=== PATIENT | female | born 1960 | race Caucasian/White ===

== ENCOUNTER 2023-12-30 15:25 | Observation (INO) | payer OTHER, BC ==
[2023-12-30] MEDS ORDERED: METHYLPREDNISOLONE 125 MG INJ ONE (15:57)
[2023-12-30] MEDS ORDERED: LEVALBUTEROL 1.25 MG/3 ML NEB ONE (15:57)
[2023-12-30 16:25] LABS: Absolute Basophils 0.1 K/uL (0-0.5); Absolute Eosinophils 0.6 K/uL (0-0.5); Absolute Lymphocytes (CBC) 2.3 K/uL (0.7-4.9); Absolute Monocytes 0.5 K/uL (0.1-1.3); Absolute Neutrophil 6.7 K/uL (1.8-8.0); Basophils % 0.8 % (0-1.3); Eosinophils % 6.2 % (0-4.4); Hematocrit 39.6 % (36.0-45.0); Hemoglobin 13.4 g/dL (12.0-15.0); Lymphocytes % 22.7 % (15.3-44.8); MCH 30.7 pg (27.0-35.0); MCHC 33.8 g/dL (32.0-36.0); MCV 90.9 fL (80-100); Monocytes % 5.1 % (3.3-12.3); Neutrophils % 65.2 % (41.7-73.7); Platelets 364 thou/uL (152-406); RBC Red Blood Cell Count 4.36 M/uL (3.86-4.86); Red Cell Distribution Width 12.9 % (12.1-15.2)
[2023-12-30 16:39] LABS: Anion Gap 6.5 mEq/L (5.0-15.0); Potassium 3.5 mEq/L (3.5-5.1); Troponin High Sensitivity 6.4 pg/mL (<58.9)
--- NOTE | 2023-12-30 16:56 | RAD REPORT ---
EXAM DESCRIPTION: Olivia Single View12/30/2023 4:45 pm CLINICAL HISTORY: sob COMPARISON: none FINDINGS: The lungs appear clear of acute infiltrate. The heart is normal size IMPRESSION: No acute abnormalities displayed
--- NOTE | 2023-12-30 18:41 | EDPHYS ---
Physician Documentation [facility] Name: Latesha Penn Age: 63 yrs Sex: Female : 1960 Arrival Date: 12/30/2023 Time: 15:25 Bed 4 Private MD: ED Physician Cortez Cui HPI: 12/29 15:52 This 63 yrs old Female presents to ER via Ambulatory with complaints of Chest Pain, rn Asthma Exacerbation. 15:53 The patient has shortness of breath at rest, with light activity. rn 15:53 Onset: The symptoms/episode began/occurred 2 day(s) ago. Duration: The symptoms are rn intermittent. The patient's shortness of breath is aggravated by coughing, supine position, talking, walking. Severity of symptoms: At their worst the symptoms were moderate in the emergency department the symptoms are unchanged. The patient has experienced similar episodes in the past. Patient reports shortness of breath with wheezing and cough for 2 days. Has asthma. Used to smoke. Inhaler helps temporarily but symptoms return. Had 30 seconds of substernal chest pressure 2 days ago but has not had some since. No trauma. No hemoptysis. No history of DVT or PE. No DVT risk factors. Had coronary testing 8 years ago that showed a 50 to 70% LAD lesion but has not had trouble since then. No stent placed at that time.. Historical: - Allergies: 15:42 NSAIDS; ll1 - PMHx: 15:42 Asthma; Hypertensive disorder; ll1 - PSHx: 15:42 back surgery; ll1 - Immunization history:: Adult Immunizations up to date. - Social history:: Smoking status: Patient/guardian denies using tobacco, the patient reports quitting approximately 4 years ago, Patient uses smokes CBD. - Family history:: not pertinent. - Hospitalizations: : No recent hospitalization is reported. ROS: 15:53 Constitutional: Negative for fever, chills, and weight loss, ENT: No stridor rn case mgr: Negative for palpitations, and edema, Respiratory: Positive for cough and wheezing with shortness of breath Abdomen/GI: Negative for abdominal pain, nausea, vomiting, diarrhea, and constipation, MS/Extremity: Negative for injury and deformity, Neuro: Negative for headache, weakness, numbness, tingling, and seizure, Exam: 15:53 Constitutional: This is a well developed, well nourished patient who is awake, alert, rn and in no acute distress. ENT: No stridor Cardiovascular: Regular rate and rhythm. No pulse deficits. Respiratory: Mild tachypnea with diffuse expiratory wheezing noted, no retractions. MS/ Extremity: Pulses equal, no cyanosis. Neuro: Awake and alert, GCS 15 19:57 ECG was reviewed by the Attending Physician. rn Vital Signs: 15:43 BP 141 / 62; Pulse 77; Resp 18; Temp 98.3; Pulse Ox 98% on R/A; Weight 81.65 kg; Height ll1 5 ft. 3 in. ; Pain 0/10; 18:30 BP 131 / 68; Pulse 64; Resp 20 S; Pulse Ox 95% on R/A; aa5 19:38 BP 144 / 70; Pulse 84; Resp 16; Pulse Ox 99% on R/A; kd3 15:43 Body Mass Index 31.89 (81.65 kg, 160.02 cm) ll1 15:43 Pain Scale: Adult ll1 MDM: 15:29 Patient medically screened. rn 18:38 Differential diagnosis: Anemia Anxiety Reaction pneumonia, Pneumothorax pulmonary rn edema, Pulmonary Embolism Unstable Angina. Data reviewed: vital signs, nurses notes, lab test result(s), EKG, radiologic studies, plain films, and as a result, I will admit patient. Consideration of Admission/Observation Patient was admitted/placed on observation. Escalation of care including admission/observation considered. Counseling: I had a detailed discussion with the patient and/or guardian regarding the historical points, exam findings, and any diagnostic results supporting the discharge/admit diagnosis, lab results, radiology results, the need for further work-up and treatment in the hospital. ED course: Patient with chest pain and dyspnea, has results from 8 years ago that showed proximal LAD lesion approximately 50 to 70%. Has not followed up since then. Given recent chest pain and dyspnea without other acute finding will admit for cardiac workup.. 12/29 15:51 Order name: Basic Metabolic Panel; Complete Time: 16:54 rn 12/29 15:51 Order name: CBC with Diff; Complete Time: 16:54 rn 12/29 15:51 Order name: D-Dimer; Complete Time: 18:02 rn 12/29 15:51 Order name: NT PRO-BNP; Complete Time: 16:54 rn 12/29 15:51 Order name: Troponin HS; Complete Time: 16:54 12/29 19:40 Order name: Magnesium EDNM 12/29 19:40 Order name: Urinalysis W/Microscopic [facility] 12/29 19:40 Order name: Thyroid Stimulating Hormone [facility] 12/29 19:40 Order name: CBC with Automated Diff EDNM 12/29 19:40 Order name: CBC with Automated Diff [facility] 12/29 19:40 Order name: Comprehensive Metabolic Panel [facility] 12/29 19:40 Order name: Comprehensive Metabolic Panel [facility] 12/29 19:40 Order name: Lipid Profile [facility] 12/29 19:40 Order name: Lipid Profile [facility] 12/29 19:40 Order name: Troponin High Sensitivity [facility] 12/29 19:40 Order name: Troponin High Sensitivity [facility] 12/29 15:51 Order name: XRAY Chest (1 view) 12/29 15:51 Order name: EKG; Complete Time: 15:51 12/29 19:40 Order name: CONS Physician Consult [facility] 12/29 15:51 Order name: Cardiac monitoring; Complete Time: 16:19 12/29 15:51 Order name: EKG - Nurse/Tech; Complete Time: 17:15 12/29 15:51 Order name: IV Saline Lock; Complete Time: 16:19 12/29 15:51 Order name: Labs collected and sent; Complete Time: 16:19 12/29 15:51 Order name: O2 Per Protocol; Complete Time: 16:19 12/29 15:51 Order name: O2 Sat Monitoring; Complete Time: 16:19 12/29 16:33 Order name: Labs - recollect needed: blue; Complete Time: 17:15 bc6 EC:57 Rate is 61 beats/min. Rhythm is regular. QRS [place] is Normal. [place] interval is normal. QRS rn interval is normal. QT interval is normal. No Q waves. T waves are Normal. No ST changes noted. Clinical impression: Normal ECG. Interpreted by me. Reviewed by me. Administered Medications: 16:19 Drug: MethylPrednisoLONE IVP 125 mg IVP once Route: IVP; Site: right antecubital; aa5 16:49 Follow up: Response: No adverse reaction aa5 19:39 Follow up: Response: No adverse reaction kd3 16:19 Drug: Levalbuterol Inhalation 1.25 mg Inhalation once Route: Inhalation; aa5 16:49 Follow up: Response: No adverse reaction aa5 19:38 Follow up: Response: No adverse reaction kd3 19:00 Drug: Aspirin PO 81 mg PO once Route: PO; aa5 19:38 Follow up: Response: No adverse reaction kd3 Disposition Summary: 12/30/23 18:40 Hospitalization Ordered Notes: Hospitalization Status: Observation rn Provider: Lili Santiago [facility]n [facility] rn Condition: Stable rn Problem: new rn Symptoms: have improved rn Bed/Room Type: Standard rn Room Assignment: 204(12/30/23 19:44) rv1 Diagnosis - Chest pain, unspecified rn - Dyspnea, unspecified rn Forms: - Medication Reconciliation Form rn - SBAR form rn - Leadership Thank You Letter rn Signatures: Dispatcher [employer] EDMS Cortez Cui MD MD rn Calderon, Audri RN RN aa5 Alicia Mead, RN RN ll1 Zakiya Somers rv1 Luana Neil Kyli RN kd3 Corrections: (The following items were deleted from the chart) 19:44 18:40 rn rv1
--- NOTE | 2023-12-30 18:41 | ER ---
Nurse's Notes [facility] Name: aLtesha Penn Age: 63 yrs Sex: Female : 1960 Arrival Date: 12/30/2023 Time: 15:25 Bed 4 Private MD: Diagnosis: Chest pain, unspecified;Dyspnea, unspecified Presentation: 12/29 15:43 Chief complaint: Patient states: SOB, wheezing, cough since Wednesday. No fever. Had 1 ll1 episode of chest pressure Wednesday, none since. Coronavirus screen: Client denies travel out of the [place] in the last 14 days. congestion, cough unrelated to allergies, difficulty breathing, shortness of breath, Client presents with at least one sign or symptom that may indicate coronavirus-19. Standard/surgical mask placed on the client. Ebola Screen: Patient denies travel to an Ebola-affected area in the 21 days before illness onset. Initial Sepsis Screen: Does the patient meet any 2 criteria? No. Patient's initial sepsis screen is negative. Does the patient have a suspected source of infection? No. Patient's initial sepsis screen is negative. Risk Assessment: Do you want to hurt yourself or someone else? Patient reports no desire to harm self or others. Onset of symptoms was December 28, 2023. 15:43 Method Of Arrival: Ambulatory ll1 15:43 Acuity: AGUSTINA 3 ll1 Triage Assessment: 15:44 General: Appears uncomfortable, Behavior is calm, cooperative, appropriate for age. ll1 Pain: Denies pain. Cardiovascular: Reports chest pain, shortness of breath. Respiratory: Reports shortness of breath cough that is. Historical: - Allergies: 15:42 NSAIDS; ll1 - PMHx: 15:42 Asthma; Hypertensive disorder; ll1 - PSHx: 15:42 back surgery; ll1 - Immunization history:: Adult Immunizations up to date. - Social history:: Smoking status: Patient/guardian denies using tobacco, the patient reports quitting approximately 4 years ago, Patient uses smokes CBD. - Family history:: not pertinent. - Hospitalizations: : No recent hospitalization is reported. Screenin:40 [facility] ED Fall Risk Assessment (Adult) History of falling in the last 3 months, aa5 including since admission No falls in past 3 months (0 pts) Confusion or Disorientation No (0 pts) Intoxicated or Sedated No (0 pts) Impaired Gait No (0 pts) Mobility Assist Device Used No (0 pt) Altered Elimination No (0 pt) Score/Fall Risk Level 0 - 2 = Low Risk Oriented to surroundings, Maintained a safe environment, Educated pt \T\ family on fall prevention, incl call for assistance when getting out of bed. Abuse screen: Denies threats or abuse. Nutritional screening: No deficits noted. Tuberculosis screening: No symptoms or risk factors identified. Assessment: 15:40 General: Appears comfortable, Behavior is calm, cooperative. Pain: Denies pain. Neuro: aa5 Level of Consciousness is awake, alert, obeys commands, Oriented to person, place, time, situation. Cardiovascular: Heart tones S1 S2 present Rhythm is regular. Respiratory: Reports shortness of breath at rest cough Airway is patent Respiratory effort is even, unlabored, Respiratory pattern is regular, symmetrical, Breath sounds with wheezes bilaterally. GI: No signs and/or symptoms were reported involving the gastrointestinal system. : No signs and/or symptoms were reported regarding the genitourinary system. EENT: No signs and/or symptoms were reported regarding the EENT system. Derm: Skin is pink, warm \T\ dry. Musculoskeletal: Range of motion: intact in all extremities. 16:19 Reassessment: Patient is alert, oriented x 3, equal unlabored respirations, skin aa5 warm/dry/pink. 16:49 Reassessment: Patient is alert, oriented x 3, equal unlabored respirations, skin aa5 warm/dry/pink. Pt sitting up in bed. . 18:30 Reassessment: Patient is alert, oriented x 3, equal unlabored respirations, skin aa5 warm/dry/pink. 19:37 General: Appears in no apparent distress. comfortable, Behavior is calm, cooperative. kd3 General: Patient disconnected from the monitor and is independently ambulatory to the restroom without SOB. . Pain: Denies pain. Neuro: Level of Consciousness is awake, alert, obeys commands, Oriented to person, place, time, situation. Cardiovascular: Rhythm is sinus rhythm. Respiratory: Airway is patent Trachea midline Respiratory effort is even, unlabored, Respiratory pattern is regular, symmetrical. 19:43 General: Pt placed back on continuous monitoring. . kd3 19:54 General: Report sent to the floor . kd3 Vital Signs: 15:43 BP 141 / 62; Pulse 77; Resp 18; Temp 98.3; Pulse Ox 98% on R/A; Weight 81.65 kg; Height ll1 5 ft. 3 in. ; Pain 0/10; 18:30 BP 131 / 68; Pulse 64; Resp 20 S; Pulse Ox 95% on R/A; aa5 19:38 BP 144 / 70; Pulse 84; Resp 16; Pulse Ox 99% on R/A; kd3 15:43 Body Mass Index 31.89 (81.65 kg, 160.02 cm) ll1 15:43 Pain Scale: Adult ll1 ED Course: 15:27 Patient arrived in ED. mr 15:29 Cortez Cui MD is Attending Physician. rn 15:36 Arm band placed on Patient placed in an exam room, on a stretcher. tm6 15:40 Patient has correct armband on for positive identification. Placed in gown. Bed in low aa5 position. Call light in reach. Side rails up X2. Adult w/ patient. Client placed on continuous cardiac and pulse oximetry monitoring. NIBP monitoring applied. quality assurance monitor chassis on. Pulse ox on. NIBP on. 15:44 Triage completed. ll1 15:46 Melony Gauthier, KOURTNEY is Primary Nurse. aa5 16:10 Initial lab(s) drawn, by me, sent to lab. Inserted saline lock: 20 gauge in right aa5 antecubital area, using aseptic technique. Blood collected. Flushed with 10 mL NS. 16:47 XRAY Chest (1 view) In Process Unspecified. EDMS 18:40 Lili Santiago MD is Hospitalizing Provider. rn 19:00 Report given to KOURTNEY Vera and KOURTNEY Avitia. aa5 Administered Medications: 16:19 Drug: MethylPrednisoLONE IVP 125 mg IVP once Route: IVP; Site: right antecubital; aa5 16:49 Follow up: Response: No adverse reaction aa5 19:39 Follow up: Response: No adverse reaction kd3 16:19 Drug: Levalbuterol Inhalation 1.25 mg Inhalation once Route: Inhalation; aa5 16:49 Follow up: Response: No adverse reaction aa5 19:38 Follow up: Response: No adverse reaction kd3 19:00 Drug: Aspirin PO 81 mg PO once Route: PO; aa5 19:38 Follow up: Response: No adverse reaction kd3 Medication: 19:18 VIS not applicable for this client. aa5 Outcome: 18:40 Decision to Hospitalize by Provider. rn 20:45 Patient left the ED. jb4 Signatures: Dispatcher [employer] EDMT Latesha Campbell, Galo Cui MD GELY Toro rn Melony Gauthier, RN RN aa5 Chip Rey RN RN jb4 Alicia Mead RN RN 1 Jody Bland RN RN kd3 Maura Joshua, RN RN Remberto Gutierrez RN RN tm6 Corrections: (The following items were deleted from the chart) 15:47 15:47 Primary Nurse role handed off by Melony Gauthier RN [facility] 15:47 15:47 Maura Joshua, KOURTNEY is Primary Nurse. [facility] 15:47 15:47 Primary Nurse role handed off by Maura Joshua, KOURTNEY [place] [id number] 15:47 15:47 Melony Gauthier, KOURTNEY is Primary Nurse. [place] [phone]
[2023-12-30] MEDS ORDERED: ASPIRIN 81 MG CHEWABLE TABLET ONE (18:55)
[2023-12-30] MEDS ORDERED: guaiFENesin 100 MG/5 ML UCUP PO PRN (19:23)
[2023-12-30] MEDS ORDERED: ONDANSETRON 4 MG/2 ML VIAL IV PRN (19:35)
[2023-12-30] MEDS ORDERED: ACETAMINOPHEN 500 MG TAB PO PRN (19:35)
[2023-12-30] MEDS ORDERED: MORPHINE 2 MG/ML SYR IV PRN (19:35)
--- NOTE | 2023-12-30 19:44 | P.HP ---
Certification for Inpatient Patient admitted to: Observation With expected LOS: <2 Midnights Patient will require the following post-hospital care: None Practitioner: I am a practitioner with admitting privileges, knowledge of patient current condition, hospital course, and medical plan of care. Services: Services provided to patient in accordance with Admission requirements found in Title 42 Section 412.3 of the Code of Federal Regulations Patient History Date of Service: 12/30/23 Reason for admission: Shortness of breath History of Present Illness: 63-year-old female with past medical history of hypertension, asthma on daily Singulair who presented to the hospital today after being asked to come to the hospital by her PCPs office for shortness of breath and wheezing since the last 1 week. Patient states she uses her MDI inhaler infrequently on average once every 6 months but since the last 1 week has been having intermittent with requiring up to 2-3 times daily use of the inhaler. Symptoms continue to persist. She had an episode of transient chest pain substernal occurred while she was ambulating, symptoms lasted for about 5 minutes she described it as heaviness then symptoms resolved. She has not had recurrent chest pain since the last 2 days. She had gone to her PCPs office because of the persistent wheezing and shortness of breath. She denies any cough she denies any fever. She states and also brought along copies of a cardiac cath in 2016 in [place] showing 50 to 70% LAD lesion around the origin of the artery. She had a subsequent stress echo done with negative/normal. She states she had the cardiac cath done because of shortness of breath. She has not had any follow-up or was not placed on any medication since then. On arrival in the emergency room vital signs were stable, troponin was negative, EKG was absolutely normal with no ST segment changes. BMP as well as CBC were unremarkable. Patient is being admitted for atypical chest pain as well as asthma exacerbation. Home medications list reviewed: Yes (LisinoprilHCTZunknown dose) - Past Medical/Surgical History -: Hypertension -: History of CAD -: Asthma Past Surgical History: Patient denies surgical history - Family History Family History: Reviewed- Non-Contributory - Social History Smoking Status: Former smoker Smoking therapy provided: No Alcohol use: No CD- Drugs: No Caffeine use: No Place of Residence: Home Review of Systems Respiratory: Shortness of Breath, Wheezing Cardiovascular: Chest Pain (Single episode) Neurological: Numbness (Intermittent of left hand and finger) Physical Examination - Physical Exam General: Alert, In no apparent distress, Oriented x3, Cooperative HEENT: Atraumatic, Normocephalic, PERRLA, Mucous membr. moist/pink Neck: Supple, 2+ carotid pulse no bruit, JVD not distended Respiratory: Normal air movement, Expiratory wheezes (Very mild) Cardiovascular: Normal pulses, Regular rate/rhythm, Normal S1 S2 Capillary refill: <2 Seconds Gastrointestinal: Normal bowel sounds, Soft and benign, Non-distended, No ascites, No tenderness Musculoskeletal: No clubbing, No swelling Integumentary: No rashes, No breakdown, No significant lesion Neurological: Normal speech, Normal strength at 5/5 x4 extr, Sensation intact, Cranial nerves 3-12 intact - Studies Laboratory Data (last 24 hrs) 12/30/23 12/30/23 16:10 16:10 WBC 10.30 Hgb 13.4 Hct 39.6 Plt Count 364 Sodium 139 Potassium 3.5 BUN 21 H Creatinine 1.00 Glucose 165 H Assessment and Plan - Problems (Diagnosis) (1) Chest pain Current Visit: Yes Status: Acute (2) Asthma exacerbation Current Visit: Yes Status: Acute - Plan Impression Acute asthma exacerbation History of CAD Chest painsingle episoderesolved Plan Will admit patient to observation DuoNebs every 4-6 hours Low-dose IV Solu-Medrol Start gentle IV fluid Follow magnesium level for intermittent left finger numbness Serial set of cardiac enzyme although chest pain was over 48 hours ago and normal EKG Cardiology consult for possibly outpatient follow-up Start low-dose aspirin Resume home meds Full code Lovenox for DVT prophylaxis Discharge Plan: Home - Advance Directives Does patient have a Living Will: No Does patient have a Durable POA for Healthcare: No Physician Review: Patient Assessed, Agree with Above Assessment and Plan Time Spent Managing Pts Care (In Minutes): 65
[2023-12-30] MEDS: ALBUTEROL 2.5 MG/3 ML NEB SOL NEB SCH (19:45)
[2023-12-30] MEDS: IPRATROPIUM BROM 0.5MG/2.5ML NEB SCH (19:45)
[2023-12-30] MEDS: MONTELUKAST 10 MG TAB PO SCH (21:00)
[2023-12-30] MEDS: METHYLPREDNISOLONE 125 MG INJ IV SCH (21:35)
[2023-12-30] MEDS: Ringers Lactate 1,000 ML IV SCH (21:35)
[2023-12-30 21:53] VITALS: BMI 31.1
[2023-12-30] MEDS: Magnesium Sulfate 2gm IVPB 2 G/50 ML BAG IV ONE (22:56)
[2023-12-31 00:07] LABS: Specific Gravity 1.026 (1.005-1.030); Sqamous Epithelial <5 /HPF (None Seen); Urine Bacteria None Seen /HPF (<20); Urine Bilirubin NEGATIVE (Negative); Urine Blood 1+ (Negative); Urine Clarity Clear (Clear); Urine Color Light-Yellow (Yellow); Urine Culture Reflex Order NOT NEEDED; Urine Glucose 4+ (Over) (Negative); Urine Ketones 1+ (Negative); Urine Micro Reflex YN NO BILL MICROSCOPIC; Urine Mucus Slight /HPF (None Seen); Urine Nitrite NEGATIVE (Negative); Urine Protein NEGATIVE (Negative); Urine RBC <5 /HPF (None Seen); Urine Urobilinogen Normal (Normal); Urine WBC <5 /HPF (<5); Urine pH 5.5 (5.0-7.0)
[2023-12-31 05:00] LABS: Absolute Lymphocytes (CBC) 0.9 K/uL (0.7-4.9); Absolute Monocytes 0.1 K/uL (0.1-1.3); Absolute Neutrophil 14.7 K/uL (1.8-8.0); Basophils % 0.2 % (0-1.3); Hematocrit 38.6 % (36.0-45.0); Hemoglobin 12.7 g/dL (12.0-15.0); Lymphocytes % 5.8 % (15.3-44.8); MCH 30.4 pg (27.0-35.0); MCV 92.1 fL (80-100); MPV 7.1 fL (7.6-11.3); Monocytes % 0.7 % (3.3-12.3); Neutrophils % 93.3 % (41.7-73.7); Platelets 339 thou/uL (152-406); Red Cell Distribution Width 12.8 % (12.1-15.2)
[2023-12-31 05:18] LABS: Albumin 3.4 g/dL (3.4-5.0); Albumin/Globulin Ratio 0.9 (1.1-1.8); Anion Gap 11.4 mEq/L (5.0-15.0); Bilirubin Total 0.2 mg/dL (0.2-1.0); Globulin 3.6 g/dL (2.3-3.5); Potassium 3.4 mEq/L (3.5-5.1); Troponin High Sensitivity 8.6 pg/mL (<58.9)
[2023-12-31] MEDS: ENOXAPARIN 40 MG/0.4 ML SQ SCH (08:16)
[2023-12-31] MEDS: ZINC SULFATE 220 MG CAP PO SCH (08:16)
[2023-12-31] MEDS: hydroCHLOROthiazide 25 MG TAB PO SCH (08:17)
[2023-12-31] MEDS: lisinopriL 20 MG TAB PO SCH (08:17)
[2023-12-31] MEDS: ASPIRIN EC 81 MG TAB PO SCH (08:17)
[2023-12-31 08:25] LABS: Blood Morphology Comment NOT SEEN (NOT SEEN); Platelet Estimate ADEQ; White Blood Cell Scan OK (OK)
[2023-12-31] MEDS ORDERED: DULERA 200/5 (MOMETASONE/FORMOTEROL) INHALER IH SCH (10:00)
--- NOTE | 2023-12-31 10:00 | P.CNS ---
Date of Consult: 12/31/23 Reason for Consult: Asthma exacerbation Chief Complaint: Shortness of breath History of Present Illness: Patient is 63 years of age previously well-controlled asthma has been experiencing progressive dyspnea cough congestion for the past 2 weeks she has been having problems since her index operation prior to that patient was using albuterol inhaler maybe once a month in the past 2 weeks she has been having more difficulty at night more cough congestion complaining of orthopnea denies any fever or chills Allergies NSAIDS (Non-Steroidal Anti-Inflamma Allergy (Unknown, Verified 12/30/23 19:42) UNKNOWN Home Medications: Fish Oil/Dha/Epa [Fish Oil 1,200 mg Fish Oil] 1,200 mg PO DAILY 12/30/23 Lisinopril/Hydrochlorothiazide [Lisinopril-Hctz 20-25 mg Tab] 1 each PO DAILY 12/30/23 Montelukast [Singulair] 10 mg PO DAILY 12/30/23 - Past Medical/Surgical History -: Hypertension -: History of CAD -: Asthma - Social History Alcohol use: Yes CD- Drugs: No Caffeine use: Yes Place of Residence: Home Review of Systems 10-point ROS is otherwise unremarkable Physical Examination Temp Pulse Resp BP Pulse Ox 97.6 F 83 16 146/64 H 91 12/31/23 08:00 12/31/23 08:17 12/31/23 08:00 12/31/23 08:17 12/31/23 08:00 General: Alert, Oriented x3 Respiratory: Expiratory wheezes Cardiovascular: No edema, Regular rate/rhythm, Normal S1 S2 Gastrointestinal: Normal bowel sounds, Soft and benign Laboratory Data (last 24 hrs) 12/30/23 12/30/23 16:10 16:10 WBC 10.30 Hgb 13.4 Hct 39.6 Plt Count 364 Sodium 139 Potassium 3.5 BUN 21 H Creatinine 1.00 Glucose 165 H - Problems (1) Asthma exacerbation Current Visit: Yes Status: Acute Plan: Patient is 63 years of age admitted with asthma exacerbation chest x-ray is clear troponins are negative labs are all unremarkable did have some chest discomfort and has a history of mild coronary artery disease EKG was unremarkable troponin is negative doubt cardiac benefit from an outpatient stress test Stable discharge home on some prednisone 10 mg twice a day for a week also a long-acting bronchodilator with a steroid inhaler butyryl as needed follow-up with me in a couple of weeks
--- NOTE | 2023-12-31 14:09 | P.CNS ---
Date of Consult: 12/31/23 Chief Complaint: Shortness of breath History of Present Illness: Patient with PMH of asthma, HTN, Mild to moderate CAD presented with worsening SHANNON, chest pain few days ago in mid chest lasted for few minutes, radiated to her left arm. also report SOB but not sure if it is related to her Asthma, no palpitations, no syncope. Allergies NSAIDS (Non-Steroidal Anti-Inflamma Allergy (Unknown, Verified 12/30/23 19:42) UNKNOWN Home medications list reviewed: Yes Home Medications: Fish Oil/Dha/Epa [Fish Oil 1,200 mg Fish Oil] 1,200 mg PO DAILY 12/30/23 Lisinopril/Hydrochlorothiazide [Lisinopril-Hctz 20-25 mg Tab] 1 each PO DAILY 12/30/23 Montelukast [Singulair] 10 mg PO DAILY 12/30/23 - Past Medical/Surgical History -: Hypertension -: History of CAD -: Asthma - Social History Alcohol use: Yes CD- Drugs: No Caffeine use: Yes Place of Residence: Home Review of Systems 10-point ROS is otherwise unremarkable Physical Examination Temp Pulse Resp BP Pulse Ox 97.1 F 79 16 136/61 93 12/31/23 12:00 12/31/23 12:00 12/31/23 12:00 12/31/23 12:00 12/31/23 12:00 General: Alert, In no apparent distress HEENT: Atraumatic, PERRLA, Mucous membr. moist/pink, EOMI, Sclerae nonicteric Neck: Supple, 2+ carotid pulse no bruit, No LAD, Without JVD or thyroid abnormality Respiratory: Clear to auscultation bilaterally, Normal air movement Cardiovascular: Regular rate/rhythm, Normal S1 S2 Gastrointestinal: Normal bowel sounds, No tenderness Musculoskeletal: No tenderness Integumentary: No rashes Neurological: Normal gait, Normal speech, Normal tone, Normal affect Lymphatics: No axilla or inguinal lymphadenopathy Laboratory Data (last 24 hrs) 12/30/23 12/30/23 16:10 16:10 WBC 10.30 Hgb 13.4 Hct 39.6 Plt Count 364 Sodium 139 Potassium 3.5 BUN 21 H Creatinine 1.00 Glucose 165 H - Problems (1) CAD (coronary artery disease) Current Visit: Yes Status: Acute Plan: Patient had coronary CT angiogram few years ago that shows mild to moderate mid LAD disease, presenting with UA plan for Coronary angiogram ASA 81 mg daily for life. Lipitor 40 mg daily (2) HTN (hypertension) Current Visit: Yes Status: Acute Plan: continue lisinopril and HCTZ (3) HLD (hyperlipidemia) Current Visit: Yes Status: Acute Plan: Lipitor 40 mg daily
[2023-12-31] MEDS ORDERED: LIDOCAINE 1% 20 ML MDV ONE (14:10)
[2023-12-31] MEDS ORDERED: HEPARIN 10,000 UNIT/10 ML VIAL IV ONE (14:10)
[2023-12-31] MEDS ORDERED: HEPA 1000U/500MLS 2,000 UNIT/1,000 ML BAG IV ONE (14:10)
[2023-12-31] MEDS ORDERED: FENTANYL CITR 100 MCG/2 ML ONE (14:11)
[2023-12-31] MEDS ORDERED: ATROPINE SULF 1 MG/10 ML SYR IV ONE (14:11)
[2023-12-31] MEDS ORDERED: CLOPIDOGREL 75 MG TABLET ONE (14:12)
[2023-12-31] MEDS ORDERED: TICAGRELOR 90 MG TABLET PO ONE (14:13)
[2023-12-31] MEDS ORDERED: MIDAZOLAM HCL 2 MG/2 ML INJ ONE (14:13)
[2023-12-31] MEDS ORDERED: HEPARIN 5000 UNIT/ML 1 ML VIAL ONE (14:14)
--- NOTE | 2023-12-31 14:38 | EKG ---
Test Date: 2023-12-30 Test Time: 17:02:08 [place]: ERIN MEASUREMENT RESULTS: Intervals: Rate: 61 MS: 172 QRSD: 92 QT: 446 QTc: 448 [place]: P: 36 MS: 172 QRS: 67 T: 74 INTERPRETIVE STATEMENTS: Normal sinus rhythm Normal ECG No previous ECG available for comparison Electronically Signed On 12-31-23 14:38:00 CDT by Cedric Ramírez
--- NOTE | 2023-12-31 14:54 | P.PN ---
Date of Service: 12/31/23 Subjective: Breathing better today No acute events overnight ROS: 10 point ROS as noted above, otherwise negative Physical exam GEN: Alert, oriented, NAD HEENT: Normal conjunctiva, sclera anicteric CV: Regular rate and rhythm, no edema Pulm: Nonlabored respirations on room air ABD: Soft, nontender, nondistended MSK: No joint tenderness Integumentary: No rashes Neuro: Normal speech, normal affect Vitals reviewed Assessment: Chest pain rule out ACS-history of CAD Asthma with exacerbation Hypertension Hyperlipidemia Plan: Chest pain rule out ACS-history of CAD Reports she had an abnormal cardiac CT a few years ago with moderate CAD Was having chest pain yesterday Cardiology recommends coronary angiogram, going for heart cath this afternoon Await results from coronary angiogram Asthma with exacerbation Seen by pulmonology, improved Recommends switching from Singulair to Advair inhaler at discharge Also recommends prednisone 10 mg by mouth twice daily for 7 days Hypertension Continue home indications Hyperlipidemia Continue statin Will need Rx at discharge if not already taking statin DVT PPX: Lovenox 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
--- NOTE | 2023-12-31 19:30 | P.DS ---
Admission Date: 12/30/23 Discharge Date: 12/31/23 Disposition: ROUTINE DISCHARGE Discharge Condition: FAIR Reason for Admission: Shortness of breath Consultations: cardiology -Dr Ramírez - Problems (1) Chest pain Current Visit: Yes Status: Acute (2) Asthma exacerbation Current Visit: Yes Status: Acute Brief History of Present Illness: 63-year-old female with past medical history of hypertension, asthma on daily Singulair who presented to the hospital today after being asked to come to the hospital by her PCPs office for shortness of breath and wheezing since the last 1 week. Patient states she uses her MDI inhaler infrequently on average once every 6 months but since the last 1 week has been having intermittent with requiring up to 2-3 times daily use of the inhaler. Symptoms continue to persist. She had an episode of transient chest pain substernal occurred while she was ambulating, symptoms lasted for about 5 minutes she described it as heaviness then symptoms resolved. She has not had recurrent chest pain since the last 2 days. She had gone to her PCPs office because of the persistent wheezing and shortness of breath. She denies any cough she denies any fever. She states and also brought along copies of a cardiac cath in 2016 in [place] showing 50 to 70% LAD lesion around the origin of the artery. She had a subsequent stress echo done with negative/normal. She states she had the cardiac cath done because of shortness of breath. She has not had any follow-up or was not placed on any medication since then. On arrival in the emergency room vital signs were stable, troponin was negative, EKG was absolutely normal with no ST segment changes. BMP as well as CBC were unremarkable. Patient is being admitted for atypical chest pain as well as asthma exacerbation. Hospital Course: patient was admitted for atypical chest pain and Asthma exacerbation . She received duonebs and steroids . She was evaluated by pulmonary and dulera and po steroids started , she was seen by Cardiology and underwent a repeat cardiac cath with findings of 4 vessel disease . outpatient evaution with CT surgery has been arranged by cardiology and will be contacted by the office . She is chest pain free now and can be discharged home today Vital Signs/Physical Exam: Temp Pulse Resp BP Pulse Ox 97 F 77 16 159/75 H 97 12/31/23 17:19 12/31/23 17:19 12/31/23 17:19 12/31/23 17:19 12/31/23 17:19 General: Alert, In no apparent distress, Oriented x3 Neck: Supple, 2+ carotid pulse no bruit Respiratory: Clear to auscultation bilaterally, Normal air movement Cardiovascular: No edema, Normal pulses, Regular rate/rhythm, Normal S1 S2 Laboratory Data at Discharge: WBC 15.80 thou/uL (4.3-10.9) H 12/31/23 04:31 Hgb 12.7 g/dL (12.0-15.0) 12/31/23 04:31 Hct 38.6 % (36.0-45.0) 12/31/23 04:31 Plt Count 339 thou/uL (152-406) 12/31/23 04:31 Sodium 139 mEq/L (136-145) 12/31/23 04:31 Potassium 3.4 mEq/L (3.5-5.1) L 12/31/23 04:31 BUN 21 mg/dL (7-18) H 12/31/23 04:31 Creatinine 1.08 mg/dL (0.55-1.02) H 12/31/23 04:31 Glucose 195 mg/dL (74-106) H 12/31/23 04:31 Magnesium 1.8 mg/dL (1.6-2.4) 12/30/23 22:00 Total Bilirubin 0.2 mg/dL (0.2-1.0) 12/31/23 04:31 AST 26 U/L (15-37) 12/31/23 04:31 ALT 30 U/L (13-56) 12/31/23 04:31 Alkaline Phosphatase 90 U/L (45-117) 12/31/23 04:31 Triglycerides 96 mg/dL (<150) 12/31/23 04:31 Cholesterol 206 mg/dL (<200) H 12/31/23 04:31 HDL Cholesterol 48 mg/dL (40-60) 12/31/23 04:31 Cholesterol/HDL Ratio 4.29 12/31/23 04:31 Home Medications: Fish Oil/Dha/Epa [Fish Oil 1,200 mg Fish Oil] 1,200 mg PO DAILY 12/30/23 Lisinopril/Hydrochlorothiazide [Lisinopril-Hctz 20-25 mg Tab] 1 each PO DAILY 12/30/23 Montelukast [Singulair] 10 mg PO DAILY 12/30/23 Mometasone/Formoterol [Dulera 200 Mcg/5 Mcg Inhaler] 2 puff IH BID #1 inhaler 12/31/23 predniSONE [Deltasone*] 10 mg PO BID #6 tab 12/31/23 New Medications: predniSONE [Deltasone*] 10 mg PO BID #6 tab Mometasone/Formoterol [Dulera 200 Mcg/5 Mcg Inhaler] 2 puff IH BID #1 inhaler Diet: Low sodium Activity: Ad arlene Followup: Jeanine Vila MD [Primary Care Provider] - Time spent managing pt's care (in minutes): 35
[2023-12-31 19:44] VITALS: BP 186/70; TEMP 98.1; O2SAT 98
[2023-12-31] MEDS: HYDRALAZINE HCL 20 MG/ML VIAL IV PRN (19:51)
[2023-12-31] MEDS: predniSONE 10 MG TAB PO SCH (19:51)
[2023-12-31] MEDS: ALBUTEROL 2.5 MG/3 ML NEB SOL NEB PRN (20:23)
--- NOTE | 2023-12-31 21:02 | OP ---
Date of Procedure: 12/31/2023 Surgeon: Cedric Ramírez Procedures Performed: 1.Left heart catheterization. 2.Selective coronary angiogram. 3.Left internal mammary artery angiogram. Indication For Procedures: Unstable angina. Complications: None. Estimated Blood Loss: Less than 50 cc. Access: Right radial, closed by TR band. Sedation Time: 20 minutes with 1 of Versed and 25 of fentanyl. Description Of Procedure: After risks, benefits, and alternatives were explained to patient, patient agreed to proceed with the procedure and signed informed consent. The patient was brought back to [facility] catheter builder, prepped and draped in sterile fashion. Time-out was performed. Sedation was administer ed. Next, right radial access was obtained, [place] 4 catheter was advanced over J-wire to the LV cavi ty. LVEDP was obtained. Pullback did not show any gradient. Same catheter was used for selective a ngiogram of the left and right coronary systems. The catheter was pulled back to the left subclavian artery with BOONE. Left subclavian and BOONE angiogram were done. Then, procedure catheter was remov ed. Sheath was removed. TR band was applied and hemostasis was achieved and patient was moved back to recovery in stable condition. Findings: 1.Left main ostial 30%, distal 60% to 70% diseased. 2.LAD ostial 90% disease and mild luminal irregularities. 3.Ramus large: Mild luminal irregularities. 4.Left circ: Mild luminal irregularities. 5.OM1: Early takeoff with mild luminal irregularities. 6.RCA: Ostial 80% disease, then mild luminal irregularities. 7.RPDA: Proximal 40% disease with mild luminal irregularities. 8.Left subclavian/BOONE patent. 9.LVEDP 9 mmHg. Assessment/plan: 1.Significant distal left main disease. 2.Ostial right coronary artery disease. 3.Significant ostial left anterior descending disease. 4.Normal filling pressures. 5.Plan will be to consult CT Surgery as an outpatient for evaluation for a bypass. VAZQUEZ/LISETHL Voice ID: [id number] Report ID: [id number]
== END 2023-12-31 21:00 | disposition home or self-care (01) ==
LOC: ER 15:25 → ERHOLD 19:35 → 2ND 20:13
PROVIDERS: ADMIT Internal Medicine; ATTEND Hospitalist
PROC: 4A023N7 Measurement of Cardiac Sampling and Pressure, Left Heart, Percutaneous Approach (ICD-10-PCS; principal; 2023-12-31)
PROC: B2111ZZ Fluoroscopy of Multiple Coronary Arteries using Low Osmolar Contrast (ICD-10-PCS; 2023-12-31)
PROC: B2151ZZ Fluoroscopy of Left Heart using Low Osmolar Contrast (ICD-10-PCS; 2023-12-31)
DX: I25.110 Atherosclerotic heart disease of native coronary artery with unstable angina pectoris (principal); J45.901 Unspecified asthma with (acute) exacerbation; I10 Essential (primary) hypertension; E78.5 Hyperlipidemia, unspecified; R20.0 Anesthesia of skin; Z87.891 Personal history of nicotine dependence; Z88.8 Allergy status to other drugs, medicaments and biological substances
CPT/HCPCS: 93005; 85025 ×2; 81001; 80048; 36415; 83735; 80061; 85379; 84443; 84484 ×3; 80053; 83880; 71045; 93458; 76937; 94640; 96374; 99285; C1893; Q9966; J1644; J7512; J3475; J0360; J2001; J7614; J7613 ×3; J7644 ×2; J1650; J2250; J3010; J2919 ×2; J7120; G0378 ×3; 99152; J0461; J3535

== ENCOUNTER 2024-03-06 09:57 | Observation (INO) | payer OTHER, BC ==
[2024-03-06 10:43] LABS: Absolute Basophils 0.1 K/uL (0-0.5); Absolute Eosinophils 0.8 K/uL (0-0.5); Absolute Lymphocytes (CBC) 1.3 K/uL (0.7-4.9); Absolute Monocytes 0.5 K/uL (0.1-1.3); Absolute Neutrophil 9.9 K/uL (1.8-8.0); Basophils % 0.7 % (0-1.3); Hematocrit 36.4 % (36.0-45.0); MCH 28.7 pg (27.0-35.0); MCHC 33.1 g/dL (32.0-36.0); MCV 86.7 fL (80-100); MPV 6.6 fL (7.6-11.3); Monocytes % 3.9 % (3.3-12.3); Neutrophils % 79.4 % (41.7-73.7); PT Prothrombin Time 12.3 SECONDS (9.4-12.5); Platelets 464 thou/uL (152-406); Protime INR 1.1; Red Cell Distribution Width 14.5 % (12.1-15.2)
[2024-03-06 11:00] LABS: ALT/SGPT 25 U/L (13-56); AST/SGOT 21 U/L (15-37); Albumin 3.2 g/dL (3.4-5.0); Albumin/Globulin Ratio 0.8 (1.1-1.8); Alkaline Phosphatase 110 U/L (45-117); Anion Gap 7.5 mEq/L (5.0-15.0); BUN Blood Urea Nitrogen 19 mg/dL (7-18); Bicarbonate 27 mEq/L (21-32); Bilirubin Direct < 0.2 mg/dL (0-0.2); Bilirubin Indirect, Calculated 0.1 mg/dL (0.2-0.8); Bilirubin Total 0.3 mg/dL (0.2-1.0); Glomerular Filtration Rate 79 ml/min (=/>90); Glucose Level 148 mg/dL (74-106); Lipase 35 U/L (13-75); Magnesium 1.8 mg/dL (1.6-2.4); NT PRO-BNP 464 pg/mL (<125); Potassium 3.5 mEq/L (3.5-5.1); Protein, Total 7.2 g/dL (6.4-8.2); Sodium Level 138 mEq/L (136-145); Troponin High Sensitivity 8.2 pg/mL (<58.9)
[2024-03-06] MEDS ORDERED: MORPHINE 2 MG/ML SYR ONE ×2 (11:05→12:29)
[2024-03-06] MEDS ORDERED: ONDANSETRON 4 MG/2 ML VIAL ONE (11:05)
[2024-03-06] MEDS ORDERED: NA CHLORIDE 0.9% 1,000 ML ONE (11:06)
[2024-03-06] MEDS ORDERED: FAMOTIDINE 20 MG/2 ML VIAL IV ONE (11:06)
[2024-03-06 12:32] LABS: Sqamous Epithelial <5 /HPF (None Seen); Urine Bacteria None Seen /HPF (<20); Urine Bilirubin NEGATIVE (Negative); Urine Blood Trace (Negative); Urine Clarity Clear (Clear); Urine Color Light-Yellow (Yellow); Urine Culture Reflex Order NOT NEEDED; Urine Glucose NEGATIVE (Negative); Urine Ketones NEGATIVE (Negative); Urine Microscopic Reflex YN ORDER UMIC; Urine Mucus Slight /HPF (None Seen); Urine Nitrite NEGATIVE (Negative); Urine Protein NEGATIVE (Negative); Urine RBC <5 /HPF (None Seen); Urine Urobilinogen Normal (Normal); Urine WBC None Seen /HPF (<5); Urine pH 5.5 (5.0-7.0)
--- NOTE | 2024-03-06 12:33 | RAD REPORT ---
EXAM: CT Angio Aorta For Dissection HISTORY: Right-sided chest pain pe;Dissection Bed Name: 7 COMPARISON: None TECHNIQUE: Multiple contiguous axial images were obtained a CTA of the chest and abdomen following in travenous administration of 100 mL Isovue-370 per aortic dissection protocol. Sagittal and coronal 3-D MIP reformats were performed. One or more of the following dose reduction techniques were used: A utomated exposure control, adjustment of the mA and kV according to patient size, and iterative reconstruction. Unless otherwise specified, incidental findings do not require dedicated imaging foll ow-up. FINDINGS: PULMONARY ARTERIES: Normal in caliber without filling defects to suggest pulmonary emboli. MEDIASTINUM: Mildly prominent upper mediastinal lymph nodes, largest measuring 11 mm in short axis in the right paratracheal region. Heart is mildly enlarged. Mild pericardial effusion. Status post median sternotomy and CABG. LUNGS: No focal infiltrates or masses. PLEURAL SPACE: Trace right layering pleural effusion. No pneumothorax LIVER: Unremarkable. Gallbladder is decompressed limiting evaluation. KIDNEYS: Unremarkable. SPLEEN: Unremarkable. PANCREAS: Unremarkable. BOWEL: Unremarkable. RETROPERITONEUM: No lymphadenopathy BONES: Degenerative changes in the spine. Retroverted uterus. ASCENDING THORACIC AORTA: Normal caliber without evidence of dissection or aneurysmal dilatation. Mi ld mixed density atherosclerotic plaque. DESCENDING THORACIC AORTA: Normal caliber without evidence of dissection or aneurysmal dilatation. M ild mixed density atherosclerotic plaque. ABDOMINAL AORTA: Normal caliber without evidence of dissection or aneurysmal dilatation. Mild mixed d ensity atherosclerotic plaque. CELIAC TRUNK: Patent SMA: Patent JOSE MARIA: Patent RENAL ARTERIES: Bilateral single renal arteries without significant atherosclerotic disease IMPRESSION: No evidence of thoracic or abdominal aortic aneurysm or dissection. Mild cardiomegaly with trace right pericardial effusion. Please correlate for history of recent inter vention. Otherwise, effusion could be of infectious or inflammatory nature. Trace right layering pleural effusion. Mildly prominent upper mediastinal lymph nodes as above, nonspecific, but could be reactive or inflam matory.
[2024-03-06 12:37] LABS: Specific Gravity > 1.030 (1.005-1.030)
--- NOTE | 2024-03-06 13:16 | RAD REPORT ---
EXAMINATION: ONE VIEW CHEST XR CLINICAL INDICATION: Female, 63 years old.,Chest pain;Dyspnea TECHNIQUE: Frontal chest projection is submitted. Examination is limited by patient positioning and t echnique. COMPARISON: 12/30/2023 FINDINGS: The lungs are well inflated and clear. No pneumothorax or sizable effusion. The heart is normal in s ize. Mediastinal contours unremarkable apart from sequelae of CABG now noted. IMPRESSION: No acute intrathoracic abnormalities.
[2024-03-06] MEDS ORDERED: METHYLPREDNISOLONE 125 MG INJ ONE (14:03)
[2024-03-06] MEDS ORDERED: LEVALBUTEROL 1.25 MG/3 ML NEB ONE (14:03)
--- NOTE | 2024-03-06 14:04 | ER ---
Nurse's Notes [facility] Name: Latesha Penn Age: 63 yrs Sex: Female : 1960 Arrival Date: 03/06/2024 Time: 09:57 Bed 7 Private MD: Diagnosis: Chest pain on breathing;Pleural effusion, not elsewhere classified-right;Pericardial effusion (noninflammatory);COPD/ Chronic obstructive pulmonary disease with (acute) exacerbation Presentation: 03/06 10:15 Chief complaint: Patient states: R upper back discomfort, described as a crampy feeling ss since 0300 this morning. Pt reports when she takes a deep breath or coughs, the pain is stabbing and radiates towards the front of her chest. Coronavirus screen: Client denies travel out of the [place] in the last 14 days. Ebola Screen: Patient denies exposure to infectious person. Patient denies travel to an Ebola-affected area in the 21 days before illness onset. Initial Sepsis Screen: Does the patient meet any 2 criteria? No. Patient's initial sepsis screen is negative. Does the patient have a suspected source of infection? No. Patient's initial sepsis screen is negative. Risk Assessment: Do you want to hurt yourself or someone else? Patient reports no desire to harm self or others. Note triple bypass on 01/11/[address] [facility]. Helton. Onset of symptoms was March 06, 2024. 10:15 Method Of Arrival: Ambulatory ss 10:15 Acuity: AGUSTINA 3 ss Historical: - Allergies: 10:17 NSAIDS; ss - Home Meds: 10:55 Singulair Oral [Active]; amlodipine oral [Active]; Aspirin Oral [Active]; Fish Oil oral aa5 [Active]; - PMHx: 10:17 Asthma; Hypertensive disorder; ss - PSHx: 10:17 back surgery; ss - Immunization history:: Client reports having NOT received the Covid vaccine. - Infectious Disease History:: Denies. - Social history:: Smoking status: Patient denies any tobacco usage or history of. - Family history:: not pertinent. Screenin:50 [facility] ED Fall Risk Assessment (Adult) History of falling in the last 3 months, aa5 including since admission No falls in past 3 months (0 pts) Confusion or Disorientation No (0 pts) Intoxicated or Sedated No (0 pts) Impaired Gait No (0 pts) Mobility Assist Device Used No (0 pt) Altered Elimination No (0 pt) Score/Fall Risk Level 0 - 2 = Low Risk Oriented to surroundings, Maintained a safe environment, Educated pt \T\ family on fall prevention, incl call for assistance when getting out of bed. Abuse screen: Denies threats or abuse. Nutritional screening: No deficits noted. Tuberculosis screening: No symptoms or risk factors identified. Assessment: 10:50 General: Appears uncomfortable, Behavior is calm, cooperative. Pain: Complains of pain aa5 in right scapular area and right subscapular area Pain radiates to chest Pain currently is 5 out of 10 on a pain scale. Quality of pain is described as crampy, Pain began today around 0300. Is continuous, Aggravated by coughing. Neuro: Level of Consciousness is awake, alert, obeys commands, Oriented to person, place, time, situation. Cardiovascular: Heart tones S1 S2 present Rhythm is regular. Respiratory: Reports shortness of breath Airway is patent Respiratory effort is even, unlabored, Respiratory pattern is regular, symmetrical. GI: No signs and/or symptoms were reported involving the gastrointestinal system. : No signs and/or symptoms were reported regarding the genitourinary system. EENT: No signs and/or symptoms were reported regarding the EENT system. Derm: Skin is pink, warm \T\ dry. Musculoskeletal: Range of motion: intact in all extremities. 11:10 Reassessment: Patient is alert, oriented x 3, equal unlabored respirations, skin aa5 warm/dry/pink. 11:13 Reassessment: Pt to CT via stretcher . aa5 Vital Signs: 10:15 BP 134 / 69; Pulse 76; Resp 16; Temp 98.4(O); Pulse Ox 97% on R/A; Weight 74.84 kg; ss Height 5 ft. 3 in. ; Pain 5/10; 12:45 BP 127 / 55; Pulse 51; Resp 16; Pulse Ox 99% ; jl7 13:30 BP 148 / 62; Pulse 64; Resp 17; Pulse Ox 96% on 1 lpm NC; jl7 14:15 BP 144 / 63; Pulse 58; Resp 14; Pulse Ox 100% on Nebulizer Mask; jl7 15:17 BP 140 / 45; Pulse 64; Resp 17; Pulse Ox 96% on R/A; jl7 10:15 Body Mass Index 29.23 (74.84 kg, 160.02 cm) ss 10:15 Pain Scale: Adult ss ED Course: 09:59 Patient arrived in ED. ra3 10:01 Joaquín Ng MD is Attending Physician. gurjit 10:17 Triage completed. ss 10:17 Arm band placed on right wrist. ss 10:34 Inserted saline lock: 20 gauge in right antecubital area, using aseptic technique. ss Blood collected. Flushed with 10 mL NS. Patient maintains SpO2 saturation greater than 95% on room air. 10:35 EKG completed in triage. Results shown to MD. ss 10:43 Melony Gauthier, KOURTNEY is Primary Nurse. aa5 10:50 Patient has correct armband on for positive identification. Placed in gown. Bed in low aa5 position. Call light in reach. Side rails up X2. Adult w/ patient. Client placed on continuous cardiac and pulse oximetry monitoring. NIBP monitoring applied. library monitor on. Pulse ox on. NIBP on. 10:58 XRAY Chest (1 view) In Process Unspecified. EDMS 11:22 CT Aorta for Dissection In Process Unspecified. EDMS 12:28 Report given to KOURTNEY Noriega. aa5 14:00 Provided Education on: use of call ruiz. jl7 14:02 Nitish Mitchell is Hospitalizing Provider. gurjit 15:26 No provider procedures requiring assistance completed. Patient admitted, IV remains in jl7 place. intact, No redness/swelling at site. Administered Medications: 10:53 Not Given (Physician Discretion): aspirinchewable tablet 81 mg PO once aa5 11:10 Drug: NS 0.9% IV 1000 ml IV at 125 ml/hr continuous Route: IV; Rate: 125 ml/hr; Site: aa5 right antecubital; 15:19 Follow up: Response: No adverse reaction; IV Status: Infusion continued upon admission jl7 11:10 Drug: morphine IVP or IV 2 mg IVP once over 4 mins Route: IVP; Infused Over: 4 mins; aa5 Site: right antecubital; 15:19 Follow up: Response: No adverse reaction jl7 11:10 Drug: Ondansetron IVP 4 mg IVP once; over 2 minutes Route: IVP; Site: right antecubital;aa5 15:19 Follow up: Response: No adverse reaction jl7 11:10 Drug: Famotidine IVP 20 mg IVP once; dilute with 10 mL 0.9% NaCl; give over 2 minutes aa5 Route: IVP; Site: right antecubital; 15:19 Follow up: Response: No adverse reaction jl7 12:47 Drug: morphine IVP or IV 2 mg IVP once over 4 mins Route: IVP; Infused Over: 4 mins; jl7 Site: right antecubital; 15:19 Follow up: Response: No adverse reaction jl7 14:19 Drug: Levalbuterol Inhalation 1.25 mg Inhalation once Route: Inhalation; jl7 15:18 Follow up: Response: No adverse reaction jl7 14:21 Drug: MethylPrednisoLONE IVP 125 mg IVP once Route: IVP; Site: right antecubital; jl7 15:18 Follow up: Response: No adverse reaction jl7 Medication: 12:20 VIS not applicable for this client. aa5 Outcome: 14:04 Decision to Hospitalize by Provider. gurjit 15:26 Admitted to Tele accompanied by tech, via wheelchair, room 210, with chart, jl7 15:26 Condition: stable 15:26 Discharge instructions given to patient, Instructed on the need for admit, Demonstrated understanding of instructions, 16:39 Patient left the ED. jl7 Signatures: Dispatcher [employer] EDJoaquín Maradiaga MD MD cha Calderon, Audri, RN RN aa5 Netta Ruelas RN RN ss Leal, Jahala, RN RN jl7 Linda Agarwal ra3 Corrections: (The following items were deleted from the chart) 11:30 11:20 morphine IVP or IV 2 mg IVP in right antecubital over 4 mins aa5 aa5
--- NOTE | 2024-03-06 14:04 | EDPHYS ---
Physician Documentation [facility] Name: Latesha Penn Age: 63 yrs Sex: Female : 1960 Arrival Date: 03/06/2024 Time: 09:57 Bed 7 Private MD: NORAH Physician Joaquín Ng HPI: 03/06 11:01 This 63 yrs old Female presents to ER via Ambulatory with complaints of Chest gurjit Pain, Breathing Difficulty. 11:01 The patient or guardian reports chest pain that is located primarily in the anterior gurjit chest wall, right. Onset: this morning, today. The pain radiates to Associated signs and symptoms: Pertinent positives: shortness of breath. The chest pain is described as sharp. Modifying factors: The symptoms are alleviated by remaining still, the symptoms are aggravated by cough, deep breath. Severity of pain: At its worst the pain was moderate severe in the emergency department the pain has improved mildly. The patient has not experienced similar symptoms in the past. Historical: - Allergies: 10:17 NSAIDS; ss - Home Meds: 10:55 Singulair Oral [Active]; amlodipine oral [Active]; Aspirin Oral [Active]; Fish Oil oral aa5 [Active]; - PMHx: 10:17 Asthma; Hypertensive disorder; ss - PSHx: 10:17 back surgery; ss - Immunization history:: Client reports having NOT received the Covid vaccine. - Infectious Disease History:: Denies. - Social history:: Smoking status: Patient denies any tobacco usage or history of. - Family history:: not pertinent. ROS: 11:01 Constitutional: Negative for fever, chills, and weight loss, Eyes: Negative for injury, gurjit pain, redness, and discharge, ENT: Negative for injury, pain, and discharge, Neck: Negative for injury, pain, and swelling, Respiratory: Negative for shortness of breath, cough, wheezing, and pleuritic chest pain, Abdomen/GI: Negative for abdominal pain, nausea, vomiting, diarrhea, and constipation, Back: Negative for injury and pain, : Negative for injury, bleeding, discharge, and swelling, MS/Extremity: Negative for injury and deformity, Skin: Negative for injury, rash, and discoloration, Neuro: Negative for headache, weakness, numbness, tingling, and seizure, Psych: Negative for depression, anxiety, suicide ideation, homicidal ideation, and hallucinations, Allergy/Immunology: Negative for hives, rash, and allergies, Endocrine: Negative for neck swelling, polydipsia, polyuria, polyphagia, and marked weight changes, Hematologic/Lymphatic: Negative for swollen nodes, abnormal bleeding, and unusual bruising, 11:01 Cardiovascular: Positive for chest pain, of the back and chest, Exam: 11:01 Constitutional: This is a well developed, well nourished patient who is awake, alert, gurjit and in no acute distress. Head/Face: Normocephalic, atraumatic. Eyes: Pupils equal round and reactive to light, extra-ocular motions intact. Lids and lashes normal. Conjunctiva and sclera are non-icteric and not injected. Cornea within normal limits. Periorbital areas with no swelling, redness, or edema. ENT: Nares patent. No nasal discharge, no septal abnormalities noted. Tympanic membranes are normal and external auditory canals are clear. Oropharynx with no redness, swelling, or masses, exudates, or evidence of obstruction, uvula midline. Mucous membranes moist. Neck: Trachea midline, no thyromegaly or masses palpated, and no cervical lymphadenopathy. Supple, full range of motion without nuchal rigidity, or vertebral point tenderness. No Meningismus. Chest/axilla: Normal chest wall appearance and motion. Nontender with no deformity. No lesions are appreciated. Cardiovascular: Regular rate and rhythm with a normal S1 and S2. No gallops, murmurs, or rubs. Normal PMI, no JVD. No pulse deficits. Respiratory: Lungs have equal breath sounds bilaterally, clear to auscultation and percussion. No rales, rhonchi or wheezes noted. No increased work of breathing, no retractions or nasal flaring. Abdomen/GI: Soft, non-tender, with normal bowel sounds. No distension or tympany. No guarding or rebound. No evidence of tenderness throughout. Back: No spinal tenderness. No costovertebral tenderness. Full range of motion. Female : Normal external genitalia. Skin: Warm, dry with normal turgor. Normal color with no rashes, no lesions, and no evidence of cellulitis. MS/ Extremity: Pulses equal, no cyanosis. Neurovascular intact. Full, normal range of motion. Neuro: Awake and alert, GCS 15, oriented to person, place, time, and situation. Cranial nerves II-XII grossly intact. Motor strength 5/5 in all extremities. Sensory grossly intact. Cerebellar exam normal. Normal gait. Psych: Awake, alert, with orientation to person, place and time. Behavior, mood, and affect are within normal limits. 11:01 Musculoskeletal/extremity: DVT Exam: No signs of deep vein thrombosis. no pain, no swelling, no tenderness, negative Homans' sign noted on exam, no appreciated bluish discoloration, no erythema, no increased warmth, 11:05 ECG was reviewed by the Attending Physician. [facility] Vital Signs: 10:15 BP 134 / 69; Pulse 76; Resp 16; Temp 98.4(O); Pulse Ox 97% on R/A; Weight 74.84 kg; ss Height 5 ft. 3 in. ; Pain 5/10; 12:45 BP 127 / 55; Pulse 51; Resp 16; Pulse Ox 99% ; jl7 13:30 BP 148 / 62; Pulse 64; Resp 17; Pulse Ox 96% on 1 lpm NC; jl7 14:15 BP 144 / 63; Pulse 58; Resp 14; Pulse Ox 100% on Nebulizer Mask; jl7 15:17 BP 140 / 45; Pulse 64; Resp 17; Pulse Ox 96% on R/A; jl7 10:15 Body Mass Index 29.23 (74.84 kg, 160.02 cm) ss 10:15 Pain Scale: Adult ss MDM: 10:01 Medical Screening Exam initiated gurjit 11:03 Differential diagnosis: abnormal EKG, acute myocardial infarction, acute pericarditis, gurjit anxiety, coronary artery disease chest wall pain, Cholelithiasis costochondritis, esophagitis, gastroesophageal reflux disease (GERD), herpes zoster, pancreatitis, peptic ulcer disease, pericarditis, pneumonia, pulmonary embolus, stable angina, thoracic aortic disection, unstable angina. HEART Score: History: Moderately Suspicious (1), ECG: Non specific repolarization disturbance / LBTB / PM (1), Age: > or = 65 years (2), Risk Factors: > or = 3 Risk factors for atherosclerotic disease (2), [Hypercholesterolemia] [Hypertension] [+ Family HX] Troponin: < or = 1 x Normal Limit (0). The patient was given aspirin in the Emergency Department. LULY Risk Score: 1 - patient's age is greater or equal to 65 years, 1 - Three or more CAD risk factors, 1- Known CAD, 1 - Recent [<24hrs] Severe Angina, 1 - Elevated Cardiac Markers. Data reviewed: vital signs, nurses notes, lab test result(s), EKG, radiologic studies, CT scan, plain films. Consideration of Admission/Observation Patient was admitted/placed on observation. Escalation of care including admission/observation considered. I considered the following discharge prescriptions or medication management in the emergency department Medications were administered in the Emergency Department. See MAR. Independent interpretation of the following test(s) in the Emergency Department EKG: See my EKG interpretation above. Test considered but Not performed: Ultrasound no 2 d echo. 03/06 10:06 Order name: Basic Metabolic Panel; Complete Time: 11: [facility] 03/06 10:06 Order name: CBC with Diff; Complete Time: 10:59 [facility] 03/06 10:06 Order name: LFT's; Complete Time: 11:03/06 10:06 Order name: Magnesium; Complete Time: 11:03/06 10:06 Order name: NT PRO-BNP; Complete Time: 11:03/06 10:06 Order name: PT-INR; Complete Time: 10:59 03/06 10:06 Order name: Troponin HS; Complete Time: 11:03/06 10:06 Order name: Lipase; Complete Time: 11: [facility] 03/06 10:06 Order name: Urinalysis w/ reflexes; Complete Time: 13:51 [facility] 03/06 10:06 Order name: XRAY Chest (1 view); Complete Time: 13:51 03/06 11:01 Order name: CT Aorta for Dissection; Complete Time: 13:51 03/06 13:53 Order name: Echo w/ Doppler 03/06 10:06 Order name: Cardiac monitoring; Complete Time: 10:52 03/06 10:06 Order name: EKG - Nurse/Tech; Complete Time: 10:35 [facility] 03/06 10:06 Order name: IV Saline Lock; Complete Time: 10:35 [facility] 03/06 10:06 Order name: Labs collected and sent; Complete Time: 10:35 03/06 10:06 Order name: O2 Per Protocol; Complete Time: 10:43 03/06 10:06 Order name: O2 Sat Monitoring; Complete Time: 10:43 gurjit EC:05 Rate is 56 beats/min. Rhythm is regular. QRS [place] is Normal. QRS interval is normal. QT gurjit interval is normal. No Q waves. T waves are Normal. No ST changes noted. Clinical impression: Sinus bradycardia and No evidence of ischemia. Interpreted by me. Reviewed by me. Administered Medications: 10:53 Not Given (Physician Discretion): aspirinchewable tablet 81 mg PO once aa5 11:10 Drug: NS 0.9% IV 1000 ml IV at 125 ml/hr continuous Route: IV; Rate: 125 ml/hr; Site: aa5 right antecubital; 15:19 Follow up: Response: No adverse reaction; IV Status: Infusion continued upon admission jl7 11:10 Drug: morphine IVP or IV 2 mg IVP once over 4 mins Route: IVP; Infused Over: 4 mins; aa5 Site: right antecubital; 15:19 Follow up: Response: No adverse reaction jl7 11:10 Drug: Ondansetron IVP 4 mg IVP once; over 2 minutes Route: IVP; Site: right antecubital;aa5 15:19 Follow up: Response: No adverse reaction jl7 11:10 Drug: Famotidine IVP 20 mg IVP once; dilute with 10 mL 0.9% NaCl; give over 2 minutes aa5 Route: IVP; Site: right antecubital; 15:19 Follow up: Response: No adverse reaction jl7 12:47 Drug: morphine IVP or IV 2 mg IVP once over 4 mins Route: IVP; Infused Over: 4 mins; jl7 Site: right antecubital; 15:19 Follow up: Response: No adverse reaction jl7 14:19 Drug: Levalbuterol Inhalation 1.25 mg Inhalation once Route: Inhalation; jl7 15:18 Follow up: Response: No adverse reaction jl7 14:21 Drug: MethylPrednisoLONE IVP 125 mg IVP once Route: IVP; Site: right antecubital; jl7 15:18 Follow up: Response: No adverse reaction jl7 Disposition Summary: 03/06/24 14:04 Hospitalization Ordered Notes: Hospitalization Status: Observation gurjit Provider: Nitish Mitchell cha Location: Telemetry/MedSurg (observation) gurjit Condition: Stable gurjit Problem: new gurjit Symptoms: have improved gurjit Bed/Room Type: Standard gurjit Room Assignment: 210(03/06/24 15:08) bd Diagnosis - Chest pain on breathing gurjit - Pleural effusion, not elsewhere classified - right gurjit - Pericardial effusion (noninflammatory) gurjit - COPD/ Chronic obstructive pulmonary disease with (acute) exacerbation gurjit Forms: - Medication Reconciliation Form gurjit - SBAR form gurjit - Leadership Thank You Letter [facility] Signatures: Dispatcher [employer] EDMS LadonnaAdelina Joaquín Quigley MD MD cha Calderon, Audri RN RN aa5 Netta Ruelas RN RN ss Hari Bustillo RN RN jl7 Corrections: (The following items were deleted from the chart) 10:07 10:07 BASIC METABOLIC PANEL+C.LAB.BRZ ordered. EDMS EDMS 10:07 10:07 CBC+H.LAB.BRZ ordered. EDMS EDMS 10:07 10:07 HEPATIC FUNCTION+C.LAB.BRZ ordered. EDMS EDMS 10:07 10:07 MAGNESIUM+C.LAB.BRZ ordered. EDMS EDMS 10:07 10:07 PROBNP+C.LAB.BRZ ordered. EDMS EDMS 10:07 10:07 PROTIME (+INR)+COAG.LAB.BRZ ordered. EDMS EDMS 10:07 10:07 Troponin High Sensitivity+C.LAB.BRZ ordered. EDMS EDMS 10:07 10:07 LIPASE+C.LAB.BRZ ordered. EDMS EDMS 10:07 10:07 Urinalysis+U.LAB.BRZ ordered. EDMS EDMS 10:07 10:07 Chest Single View+RAD.RAD.BRZ ordered. EDMS EDMS 15:08 14:04 gurjit bd
--- NOTE | 2024-03-06 15:03 | P.HP ---
Certification for Inpatient Patient admitted to: Observation With expected LOS: <2 Midnights Patient will require the following post-hospital care: None Practitioner: I am a practitioner with admitting privileges, knowledge of patient current condition, hospital course, and medical plan of care. Services: Services provided to patient in accordance with Admission requirements found in Title 42 Section 412.3 of the Code of Federal Regulations Patient History Date of Service: 03/06/24 Reason for admission: Chest pain History of Present Illness: 63-year-old female with history of asthma, CAD with recent CABG presents to the emergency department with chief complaint of chest pain radiating to her back. She had her CABG about 8 weeks ago at [facility] with Dr. Terrell, she has been doing well postoperatively but was awoken at around 3 AM this morning with a sharp pain in her back radiating to her chest. She did take some [place] which seemed to improve it for a few hours but the pain came back and was worsening for that reason she came to the hospital for evaluation. She was evaluated here in the emergency department her labs are significant for initial high sensitive troponin of 8.2, CT dissection protocol was performed which showed a small pericardial effusion, trace right layering pleural effusion. ED provider wishes to admit under observation for chest pain evaluation. Allergies NSAIDS (Non-Steroidal Anti-Inflamma Allergy (Unknown, Verified 12/30/23 19:42) UNKNOWN Home Medications: Fish Oil/Dha/Epa [Fish Oil 1,200 mg Fish Oil] 1,200 mg PO DAILY 12/30/23 Lisinopril/Hydrochlorothiazide [Lisinopril-Hctz 20-25 mg Tab] 1 each PO DAILY 12/30/23 Montelukast [Singulair] 10 mg PO DAILY 12/30/23 Mometasone/Formoterol [Dulera 200 Mcg/5 Mcg Inhaler] 2 puff IH BID #1 inhaler 12/31/23 predniSONE [Deltasone*] 10 mg PO BID #6 tab 12/31/23 - Past Medical/Surgical History -: Hypertension -: History of CAD/CABG -: Asthma -: CABG Psychosocial/ Personal History: Lives at home with family - Family History Family History: Reviewed- Non-Contributory - Social History Smoking Status: Former smoker Alcohol use: Yes CD- Drugs: No Caffeine use: Yes Review of Systems 10-point ROS is otherwise unremarkable Respiratory: Cough Cardiovascular: Chest Pain Physical Examination - Physical Exam General: Alert, In no apparent distress, Oriented x3 HEENT: Atraumatic, PERRLA, Mucous membr. moist/pink, EOMI, Sclerae nonicteric Neck: Supple, 2+ carotid pulse no bruit, No LAD Respiratory: Clear to auscultation bilaterally, Normal air movement Cardiovascular: Regular rate/rhythm, Normal S1 S2 Gastrointestinal: Normal bowel sounds, No tenderness Musculoskeletal: No tenderness Integumentary: No rashes Neurological: Normal speech, Normal strength at 5/5 x4 extr, Normal tone, Normal affect - Studies Laboratory Data (last 24 hrs) 03/06/24 03/06/24 03/06/24 10:32 10:32 10:32 WBC 12.50 H Hgb 12.0 Hct 36.4 Plt Count 464 H PT 12.3 INR 1.10 Sodium 138 Potassium 3.5 BUN 19 H Creatinine 0.82 Glucose 148 H Magnesium 1.8 Total Bilirubin 0.3 AST 21 ALT 25 Alkaline Phosphatase 110 Lipase 35 Assessment and Plan - Plan Assessment: Chest pain rule out ACS-recent CABG Small pericardial effusion History of asthma Hyperlipidemia Plan: Chest pain rule out ACS-recent CABG Small pericardial effusion Obtain echocardiogram Initial troponin negative, trend/monitor on telemetry Cardiology consult Continue aspirin, statin As needed [place], morphine Pain seems more pleuritic in nature, reproducible with deep breath History of asthma As needed inhaler treatments Hyperlipidemia Statin continued DVT PPX: [place] Code status: Full Discharge Plan: Home Plan to discharge in: 24 Hours - Advance Directives Does patient have a Living Will: No Does patient have a Durable POA for Healthcare: No - Code Status/Comfort Care Code Status Assessed: Yes (Full code) Critical Care: No Time Spent Managing Pts Care (In Minutes): 62
[2024-03-06 15:39] VITALS: BMI 29.2
[2024-03-06] MEDS ORDERED: ALBUTEROL 2.5 MG/3 ML NEB SOL NEB PRN (15:41)
[2024-03-06] MEDS: MORPHINE 2 MG/ML SYR IV PRN (18:13)
[2024-03-06] MEDS: ATORVASTATIN 20 MG TAB PO SCH (20:19)
[2024-03-06] MEDS: HYDROCODONE/APAP 5/325 MG TAB PO PRN (21:56)
[2024-03-07 02:56] VITALS: O2SAT 94
[2024-03-07 05:55] LABS: Absolute Lymphocytes (CBC) 0.8 K/uL (0.7-4.9); Absolute Monocytes 0.3 K/uL (0.1-1.3); Absolute Neutrophil 15.3 K/uL (1.8-8.0); Basophils % 0.1 % (0-1.3); Hematocrit 33.9 % (36.0-45.0); Hemoglobin 11.4 g/dL (12.0-15.0); Lymphocytes % 5.1 % (15.3-44.8); MCHC 33.5 g/dL (32.0-36.0); MCV 86.5 fL (80-100); MPV 6.8 fL (7.6-11.3); Monocytes % 1.6 % (3.3-12.3); Neutrophils % 93.2 % (41.7-73.7); Platelets 432 thou/uL (152-406); RBC Red Blood Cell Count 3.92 M/uL (3.86-4.86); Red Cell Distribution Width 14.6 % (12.1-15.2)
[2024-03-07 06:14] LABS: Anion Gap 7.9 mEq/L (5.0-15.0); Potassium 3.9 mEq/L (3.5-5.1); Troponin High Sensitivity 5.4 pg/mL (<58.9)
[2024-03-07] MEDS: **PT MED**Fluticasone/Umeclidin/Vilanter [Trelegy Ellipta 100-62.5-25] Blst.W.Dev IH SCH (08:38)
[2024-03-07] MEDS: AMLODIPINE 5 MG TAB PO SCH (08:56)
[2024-03-07] MEDS: POTASSIUM CL SA 10 MEQ TAB PO ONE (08:56)
[2024-03-07] MEDS: ASPIRIN EC 81 MG TAB PO SCH (08:56)
[2024-03-07] MEDS: MONTELUKAST 10 MG TAB PO SCH (08:56)
[2024-03-07] MEDS: ENOXAPARIN 40 MG/0.4 ML SQ SCH (08:56)
[2024-03-07] MEDS ORDERED: MONTELUKAST 10 MG TAB PO SCH (09:00)
[2024-03-07] MEDS ORDERED: AMLODIPINE 5 MG TAB PO SCH (09:00)
[2024-03-07 09:06] LABS: Blood Morphology Comment NOT SEEN (NOT SEEN); Platelet Estimate ADEQ; White Blood Cell Scan OK (OK)
--- NOTE | 2024-03-07 11:34 | P.CNS ---
Date of Consult: 03/07/24 Chief Complaint: Chest pain History of Present Illness: Patient with PMH of CAD s/p recent CBG x3 with BOONE-LAD, SVG-OM and SVG-RPDA done at the [facility], she has been doing well but yesterday she woke up with back pain radiated to her right side, felt like sharp, denies any left sided chest pain, no other cardiac symptoms. Allergies NSAIDS (Non-Steroidal Anti-Inflamma Allergy (Unknown, Verified 03/06/24 15:34) UNKNOWN Home medications list reviewed: Yes Home Medications: Fish Oil/Dha/Epa [Fish Oil 1,200 mg Fish Oil] 1,200 mg PO DAILY 12/30/23 Montelukast [Singulair] 10 mg PO DAILY 12/30/23 Amlodipine [Norvasc*] 5 mg PO DAILY 03/06/24 Aspirin 81 mg PO DAILY 03/06/24 Atorvastatin Calcium 20 mg PO DAILY 03/06/24 Fluticasone/Umeclidin/Vilanter [Trelegy Ellipta 100-62.5-25] 1 puff XX DAILY 03/06/24 - Past Medical/Surgical History -: Hypertension -: History of CAD/CABG -: Asthma -: HLD -: CABG Psychosocial/ Personal History: Lives at home with family - Social History Alcohol use: Yes CD- Drugs: No Caffeine use: Yes Place of Residence: Home Review of Systems 10-point ROS is otherwise unremarkable Physical Examination Temp Pulse Resp BP Pulse Ox 97.8 F 65 16 138/63 92 03/07/24 08:00 03/07/24 08:00 03/07/24 08:00 03/07/24 08:00 03/07/24 08:00 General: Alert, In no apparent distress HEENT: Atraumatic, PERRLA, Mucous membr. moist/pink, EOMI, Sclerae nonicteric Neck: Supple, 2+ carotid pulse no bruit, No LAD, Without JVD or thyroid abnormality Respiratory: Clear to auscultation bilaterally, Normal air movement Cardiovascular: Regular rate/rhythm, Normal S1 S2 Gastrointestinal: Normal bowel sounds, No tenderness Musculoskeletal: No tenderness Integumentary: No rashes Neurological: Normal gait, Normal speech, Normal tone, Normal affect Lymphatics: No axilla or inguinal lymphadenopathy - Problems (1) CAD (coronary artery disease) of artery bypass graft Current Visit: Yes Status: Acute Plan: Patient with recent CBG x 3(BOONE-LAD, SVG-OM, SVG-RPDA), presented with atypical chest pain - cardiac enzymes are negative x 3. EKG normal Echo shows normal EF with trace pericardial effusion. no further cardiac work up needed. (2) HLD (hyperlipidemia) Current Visit: No Status: Acute Plan: continue lipitor 20 mg daily outpatient lipid panel. (3) HTN (hypertension) Current Visit: No Status: Acute Plan: continue Norvasc
--- NOTE | 2024-03-07 12:00 | P.CNS ---
Date of Consult: 03/07/24 Reason for Consult: Acute cough Chief Complaint: Cough for the past 3 weeks History of Present Illness: Patient is 63 years of age. With right-sided chest discomfort radiating anteriorly described as charley horses pain has improved since admission patient had a CABG on January 20 after cough 3 weeks ago now using Trelegy on a intermittent basis also complaining of a mucous apparently the Trelegy is very expensive Allergies NSAIDS (Non-Steroidal Anti-Inflamma Allergy (Unknown, Verified 03/06/24 15:34) UNKNOWN Home Medications: Fish Oil/Dha/Epa [Fish Oil 1,200 mg Fish Oil] 1,200 mg PO DAILY 12/30/23 Montelukast [Singulair] 10 mg PO DAILY 12/30/23 Amlodipine [Norvasc*] 5 mg PO DAILY 03/06/24 Aspirin 81 mg PO DAILY 03/06/24 Atorvastatin Calcium 20 mg PO DAILY 03/06/24 Fluticasone/Umeclidin/Vilanter [Trelegy Ellipta 100-62.5-25] 1 puff XX DAILY 03/06/24 - Past Medical/Surgical History -: Hypertension -: History of CAD/CABG -: Asthma -: HLD -: CABG Psychosocial/ Personal History: Lives at home with family - Social History Alcohol use: Yes CD- Drugs: No Caffeine use: Yes Place of Residence: Home Review of Systems 10-point ROS is otherwise unremarkable Physical Examination Temp Pulse Resp BP Pulse Ox 97.8 F 65 16 138/63 92 03/07/24 08:00 03/07/24 08:00 03/07/24 08:00 03/07/24 08:00 03/07/24 08:00 General: Alert, Oriented x3 Respiratory: Clear to auscultation bilaterally Cardiovascular: No edema, Regular rate/rhythm, Normal S1 S2 Gastrointestinal: Normal bowel sounds, Soft and benign - Problems (1) Asthma exacerbation Current Visit: No Status: Acute Plan: Patient is 63 years of age admitted with some chest discomfort acute cough I suspect she may have an exacerbation of underlying asthma patient states the Trelegy is very expensive currently to take prednisone 10 mg twice a day for a week and use Trelegy on a daily basis I have also sent in a prescription in for Advair which is much cheaper labs unremarkable chest x-ray is clear white count is mildly elevated I suspect is from the steroids stable for discharge
--- NOTE | 2024-03-07 12:22 | EKG ---
Test Date: 2024-03-06 Test Time: 10:25:34 Waste Management Engineer: VANESSA MEASUREMENT RESULTS: Intervals: Rate: 56 GA: 164 QRSD: 136 QT: 460 QTc: 443 [place]: P: 23 GA: 164 QRS: 77 T: 47 INTERPRETIVE STATEMENTS: Sinus bradycardia Right bundle branch block Abnormal ECG Compared to ECG 12/30/2023 17:02:08 Right bundle-branch block now present Sinus rhythm no longer present Electronically Signed On 03-07-24 12:17:34 CRITICAL CARE EDUCATOR by Cedric Ramírez
[2024-03-07 12:37] VITALS: BP 143/64; TEMP 98.2
--- NOTE | 2024-03-07 14:03 | P.DS ---
Admission Date: 03/06/24 Discharge Date: 03/07/24 Disposition: ROUTINE DISCHARGE Discharge Condition: GOOD Reason for Admission: Cough for the past 3 weeks Consultations: CardiologyDr. Ramírez Pulmonary Dr. Cardenas Brief History of Present Illness: 63-year-old female with history of asthma, CAD with recent CABG presents to the emergency department with chief complaint of chest pain radiating to her back. She had her CABG about 8 weeks ago at [facility] with Dr. Terrell, she has been doing well postoperatively but was awoken at around 3 AM this morning with a sharp pain in her back radiating to her chest. She did take some [place] which seemed to improve it for a few hours but the pain came back and was worsening for that reason she came to the hospital for evaluation. She was evaluated here in the emergency department her labs are significant for initial high sensitive troponin of 8.2, CT dissection protocol was performed which showed a small pericardial effusion, trace right layering pleural effusion. ED provider wishes to admit under observation for chest pain evaluation. Hospital Course: Assessment: Chest pain rule out ACS-recent CABG Small pericardial effusion History of asthma Hyperlipidemia Patient is status post CABG 8 weeks ago, was having pleuritic chest/back pain and came into the emergency department for evaluation. She was admitted under observation and troponins were trended, they were negative and remained flat. Echocardiogram was also performed which showed mild/trace pericardial effusion. She was seen by cardiology recommends further evaluation as an outpatient. She had also been having a persistent/increasing cough which pulmonology believes is related to an asthma exacerbation. She was instructed to take her Trelegy daily rather than every other day as she had been taking it and will be given a short course of oral steroids. Prescription for prednisone, Spiriva sent to your pharmacy Continue taking your other home medications as previously prescribed Please follow-up with your primary care doctor, pulmonologyDr. Cardenas and cardiologyDr. Ramírez Vital Signs/Physical Exam: Temp Pulse Resp BP Pulse Ox 98.2 F 77 18 143/64 H 96 03/07/24 12:00 03/07/24 12:00 03/07/24 12:00 03/07/24 12:00 03/07/24 12:00 General: Alert, In no apparent distress, Oriented x3 HEENT: Atraumatic, PERRLA Neck: Supple, JVD not distended Respiratory: Clear to auscultation bilaterally, Normal air movement Cardiovascular: Regular rate/rhythm, Normal S1 S2 Gastrointestinal: Normal bowel sounds, No tenderness Musculoskeletal: No tenderness Integumentary: No rashes Neurological: Normal speech, Normal tone, Normal affect Laboratory Data at Discharge: WBC 16.40 thou/uL (4.3-10.9) H 03/07/24 05:25 Hgb 11.4 g/dL (12.0-15.0) L 03/07/24 05:25 Hct 33.9 % (36.0-45.0) L 03/07/24 05:25 Plt Count 432 thou/uL (152-406) H 03/07/24 05:25 PT 12.3 SECONDS (9.4-12.5) 03/06/24 10:32 INR 1.10 03/06/24 10:32 Sodium 137 mEq/L (136-145) 03/07/24 05:25 Potassium 3.9 mEq/L (3.5-5.1) 03/07/24 05:25 BUN 16 mg/dL (7-18) 03/07/24 05:25 Creatinine 0.87 mg/dL (0.55-1.02) 03/07/24 05:25 Glucose 164 mg/dL (74-106) H 03/07/24 05:25 Magnesium 1.8 mg/dL (1.6-2.4) 03/06/24 10:32 Total Bilirubin 0.3 mg/dL (0.2-1.0) 03/06/24 10:32 AST 21 U/L (15-37) 03/06/24 10:32 ALT 25 U/L (13-56) 03/06/24 10:32 Alkaline Phosphatase 110 U/L (45-117) 03/06/24 10:32 Lipase 35 U/L (13-75) 03/06/24 10:32 Home Medications: Fish Oil/Dha/Epa [Fish Oil 1,200 mg Fish Oil] 1,200 mg PO DAILY 12/30/23 Montelukast [Singulair*] 10 mg PO DAILY 12/30/23 Amlodipine [Norvasc*] 5 mg PO DAILY 03/06/24 Aspirin 81 mg PO DAILY 03/06/24 Atorvastatin Calcium 20 mg PO DAILY 03/06/24 Fluticasone/Umeclidin/Vilanter [Trelegy Ellipta 100-62.5-25] 1 puff XX DAILY 03/06/24 Fluticasone Propion/Salmeterol [Advair 250-50 Diskus] 1 each IH BID 30 Days #60 aero 03/07/24 predniSONE [Deltasone*] 10 mg PO BID #14 tab 03/07/24 New Medications: Fluticasone Propion/Salmeterol [Advair 250-50 Diskus] 1 each IH BID 30 Days #60 aero predniSONE [Deltasone*] 10 mg PO BID #14 tab Physician Discharge Instructions: Patient is status post CABG 8 weeks ago, was having pleuritic chest/back pain and came into the emergency department for evaluation. She was admitted under observation and troponins were trended, they were negative and remained flat. Echocardiogram was also performed which showed mild/trace pericardial effusion. She was seen by cardiology recommends further evaluation as an outpatient. She had also been having a persistent/increasing cough which pulmonology believes is related to an asthma exacerbation. She was instructed to take her Trelegy daily rather than every other day as she had been taking it and will be given a short course of oral steroids. Prescription for prednisone, Spiriva sent to your pharmacy Continue taking your other home medications as previously prescribed Please follow-up with your primary care doctor, pulmonologyDrLorrie Cardenas and cardiologyDrLorrie Ramírez Diet: Regular Activity: Ad arlene Followup: Ed Cardenas MD [ACTIVE - CAN ADMIT] - 1-2 Weeks Cedric Ramírez MD [ACTIVE - CAN ADMIT] - 1-2 Weeks Jeanine Vila MD [Primary Care Provider] - Time spent managing pt's care (in minutes): 34
--- NOTE | 2024-03-08 08:58 | ECHO ---
HEIGHT: 5 ft 3 in WEIGHT: 164 lb 14.492 oz DATE OF STUDY: 03/07/[address]: Joaquín Ng MD 2-DIMENSIONAL: YES M.MODE: YES DOPPLER: YES COLOR FLOW: YES TDS: NO PORTABLE: YES DEFINITY: NO BUBBLE STUDY: NO DIAGNOSIS: CHEST PAIN, STATUS POST CORONARY ARTERIAL BYPASS GRAFT CARDIAC HISTORY: CATHERIZATION:YES SURGERY: YES PROSTHETIC VALVE: NO PACEMAKER: NO MEASUREMENTS (cm) DIASTOLIC (NORMALS) SYSTOLIC (NORMALS) IVSd 1.0 (0.6-1.2) LA Diam 3.0 (1.9-4.0) LVEF 60% LVIDd 4.8 (3.5-5.7) LVIDs 3.3 (2.0-3.5) %FS 31% LVPWd 1.0 (0.6-1.2) Ao Diam 2.2 (2.0-3.7) 2 DIMENSIONAL ASSESSMENT: RIGHT ATRIUM: NORMAL LEFT ATRIUM: NORMAL RIGHT VENTRICLE: NORMAL LEFT VENTRICLE: NORMAL TRICUSPID VALVE: MILD TRICUSPID REGURGITATION MITRAL VALVE: TRACE MITRAL REGURGITATION PULMONIC VALVE: NORMAL AORTIC VALVE: NORMAL PERICARDIAL EFFUSION: TRACE AORTIC ROOT: NORMAL LEFT VENTRICULAR WALL MOTION: NORMAL. DOPPLER/COLOR FLOW: DIASTOLIC DYSFUNCTION. COMMENTS: 1. NORMAL LEFT VENTRICULAR SYSTOLIC FUNCTION. LEFT VENTRICULAR EJECTION FRACTION 60%. NORMAL WALL MOTION. 2. DIASTOLIC DYSFUNCTION. 3. MILDLY ELEVATED FILLING PRESSURE. RIGHT ATRIAL PRESSURE 5-10 mmHg. 4. MILD PULMONARY HYPERTENSION. RIGHT VENTRICULAR SYSTOLIC PRESSURE 30-35 mmHg. TECHNOLOGIST: MIKAELA JESSICA
== END 2024-03-07 14:08 | disposition home or self-care (01) ==
LOC: ER 09:57 → ERHOLD 14:42 → 2ND 15:45
PROVIDERS: ADMIT Internal Medicine; ATTEND Hospitalist
DX: R07.9 Chest pain, unspecified (principal); I31.39 Other pericardial effusion (noninflammatory); J45.909 Unspecified asthma, uncomplicated; R05.9 Cough, unspecified; I25.10 Atherosclerotic heart disease of native coronary artery without angina pectoris; E78.5 Hyperlipidemia, unspecified; M54.9 Dorsalgia, unspecified; Z95.1 Presence of aortocoronary bypass graft; Z88.6 Allergy status to analgesic agent
CPT/HCPCS: 93005; 93306; 85025 ×2; 81001; 80048 ×2; 36415; 83735; 85610; 80076; 84484 ×3; 83690; 83880; 71275; 74175; 71045; Q9967; J7614; J1650; J2270 ×4; J2919; J2405; J7030; 96361; 96374; 96375; 99285; G0378